=== PATIENT | male | born 1960 | race Caucasian/White ===

== ENCOUNTER 2017-02-13 16:52 | Emergency (ER) | payer OTHER ==
[~2017-02-13] VITALS: Wt 81.8 kg
[2017-02-13] MEDS ORDERED: HYDROCODONE/APAP (5/325) TAB PO STA (17:22)
[2017-02-13] MEDS ORDERED: LIDOCAINE 2%/EPI MPF (SDV) 20 ML VIAL INJ STA (17:22)
[2017-02-13] MEDS ORDERED: DIPHTH/TET/ACEL PERTUSS (ADULT) 0.5 ML VIAL IM ONE (17:30)
--- NOTE | 2017-02-13 18:35 | ERA ---
ER Documentation Chief Complaint Date/Time DATE: 02/13/17 TIME: 18:27 Chief Complaint lac to r. palm, wrist area HPI This [place]ander-speaking, left-handed male patient presents to emergency department today for right wrist laceration. Patient reports that he accidentally's cut his wrist approximately 30 minutes ago while slicing watermelon at home. Patient denies any alteration in sensation, has full range of motion and strength in hand. Laceration is actively bleeding at this time, non-pulsating, bright red blood. ROS All systems reviewed and are negative except as per history of present illness. Allergies Allergies: Coded Allergies: No Known Allergy (Unverified , 02/13/17) PMhx/Soc Medical and Surgical Hx: pt denies Medical Hx, pt denies Surgical Hx History of Surgery: No Anesthesia Reaction: No Hx Neurological Disorder: No Hx Respiratory Disorders: No Hx Cardiac Disorders: No Hx Psychiatric Problems: No Hx Miscellaneous Medical Probl: No Hx Alcohol Use: No Hx Substance Use: No Hx Tobacco Use: No Smoking Status: Never smoker Physical Exam Vitals Vital Signs Date Time Temp Pulse Resp B/P Pulse Ox O2 Delivery O2 Flow Rate FiO2 02/13/17 16:54 98.0 114 20 167/99 99 Vitals stable, triage notes reviewed Physical Exam Const: Well-hydrated, well-nourished, well-appearing in no acute distress Head: Atraumatic Eyes: Normal Conjunctiva ENT: Normal External Ears, Nose and Mouth. Neck: Full range of motion..~ No meningismus. Resp: Clear to auscultation bilaterally Cardio: Regular rate and rhythm, no murmurs Abd: Soft, non tender, non distended. Normal bowel sounds Skin: No petechiae or rashes Back: No midline or flank tenderness Ext: No cyanosis, or edema Neur: Awake and alert Psych: Normal Mood and Affect Results 24 hrs Current Medications Medications (Trade) Dose Ordered Sig/Clayton Route PRN Reason Start Time Stop Time Status Last Admin Dose Admin Diphtheria/ Tetanus/Acell Pertussis (Adacel) 0.5 ml ONCE ONCE IM 02/13/17 17:30 02/13/17 17:31 DC 02/13/17 17:51 Lidocaine/ Epinephrine (Xylocaine 2%/ Epi Mpf(Sdv)) 20 ml ONCE STAT INJ 02/13/17 17:22 02/13/17 17:30 DC Acetaminophen/ Hydrocodone Bitart ([place] (5/325)) 1 tab ONCE STAT PO 02/13/17 17:22 02/13/17 17:30 DC 02/13/17 17:50 Procedures/MDM PROCEDURE: Right upper extremity duplex arterial ultrasound CLINICAL INDICATION: Laceration in the right radial artery area. TECHNIQUE: A limited right upper extremity duplex arterial ultrasound was performed with harris scale and Doppler imaging. COMPARISON: None available FINDINGS: The right radial artery is patent. No pseudoaneurysm is identified. IMPRESSION: 1. Patent right radial artery. 2. No pseudoaneurysm or hematoma. RPTAT: HTAR .Shaan Conway MD, MD Date Time Electronically viewed and signed by .Shaan Conway MD, MD on 02/13/2017 19:27 Laceration Repair by me: Anesthesia: 2% lidocaine with epi infused locally Location: Right wrist Tendon/Joint/Nerves: No injury Foreign body: None detected after copious irrigation and exploration Technique: 7 Simple Interrupted Sutures, 4.0 Prolene Complexity: No subcutaneous sutures/mucosal repair/edge excision Post Closure Length: 2.3 cm Patient's bleeding was controlled with manual pressure, suturing, and Surgicel there is no indication of anemia. A vascular study of of radial artery is done to exclude radial artery laceration. Radial artery patent, no pseudoaneurysm. No evidence of compartment syndrome, neurologic injury, vascular injury, open joint, tendon laceration, or foreign body. Patient placed in a wrist brace to prevent flexion and hyperextension of wrist. 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 Patient given Motrin 400 mg 1 tab p.o. every 6 hours as needed. Patient will not be placed on antibiotics today. Return to emergency department if bleeding restarts, swelling, change in sensation to fingers, dizziness. I feel the patient is stable for discharge at this time. I have discussed results, examination findings, the treatment plan with the patient and family present prior to discharge. Indications for emergent reevaluation, side effects of medication were also discussed. All questions were answered. Patient verbalizes understanding and agrees with plan of care. Departure Diagnosis: Primary Impression: Laceration Condition: Good Patient Instructions: Laceration, All Additional Instructions: Thank you for for coming to [facility] for your care today. Please ask your nurse or provider if you have questions about your care today and do not leave until all your questions have been answered. Please use any medications given as directed and follow-up with your doctor (or the doctor you were referred to) in the next 2-3 days. If you do not have a primary care doctor you may follow up at the [facility] (listed below). You may also use motrin and tylenol as needed for fever and/or pain unless instructed otherwise by your provider or nurse. Indications for more urgent follow-up have been discussed, but you may return to the Emergency Department at ANY time for any worrisome or worsening symptoms. If you have abdominal pain, please know that no test or exam you received is perfect and you should follow up within 8 hours for continued pain. If you had any imaging studies today, such as an X-Ray or CT Scan, these studies will be reviewed later by a radiologist. You will be called if there are important findings that were not identified today, so make sure the contact information you provided at registration is correct. If you received any narcotic pain control medicine today, such as Vicodin, Morphine or Dilaudid, your coordination and judgment may be affected for a number of hours. Please do not drive or operate heavy machinery, and you may want someone to assist you at home. If you were given a prescription for narcotic medication, be aware that it is very addictive- use sparingly and only if necessary. KYM FLANNERY Feb 13, 2017 18:34
--- NOTE | 2017-02-13 19:27 | RADRPT ---
PROCEDURE: Right upper extremity duplex arterial ultrasound CLINICAL INDICATION: Laceration in the right radial artery area. TECHNIQUE: A limited right upper extremity duplex arterial ultrasound was performed with harris scal e and Doppler imaging. COMPARISON: None available FINDINGS: The right radial artery is patent. No pseudoaneurysm is identified. IMPRESSION: 1. Patent right radial artery. 2. No pseudoaneurysm or hematoma. RPTAT: HTAR .Shaan Conway MD, MD Date Time Electronically viewed and signed by .Shaan Conway MD, on 02/13/2017 19:27 .R/
[2017-02-13] MEDS ORDERED: IBUP400T22 PO (20:14)
[2017-02-13 21:07] VITALS: BP 157/89; PULSE 78; RESP 20; TEMP 98.2
== END 2017-02-13 21:08 | disposition home or self-care (01) ==
LOC: FTE 16:52
DX: S61.511A Laceration without foreign body of right wrist, initial encounter (principal); X58.XXXA Exposure to other specified factors, initial encounter; Y92.9 Unspecified place or not applicable; Z23 Encounter for immunization
CPT/HCPCS: 12001; 90715; 93976; Z7610; 90471

== ENCOUNTER 2017-02-16 10:34 | Emergency (ER) | payer OTHER ==
[~2017-02-16] VITALS: Ht 162.6 cm; Wt 86.0 kg
[~2017-02-16 10:34] MED LIST: IBUP400T22 PO
[2017-02-16 10:41] VITALS: Ht 162.6 cm; Wt 86.0 kg
--- NOTE | 2017-02-16 11:19 | ERD ---
ER Documentation Chief Complaint Date/Time DATE: 02/16/17 TIME: 11:15 Chief Complaint HPI This 56-year-old male who presents to the emergency department today for a wound check of a laceration that he sustained on his right hand a couple of days ago while cutting open a watermelon. States he is taking ibuprofen for pain. Denies any fevers or chills. ROS All systems reviewed and are negative except as per history of present illness. Medications Home Meds Active Scripts Ibuprofen* (Motrin*) 400 Mg Tab, 400 MG PO Q6, #30 TAB Prov:KYM FLANNERY 02/13/17 Allergies Allergies: Coded Allergies: No Known Allergy (Unverified , 02/16/17) PMhx/Soc History of Surgery: No Anesthesia Reaction: No Hx Neurological Disorder: No Hx Respiratory Disorders: No Hx Cardiac Disorders: No Hx Psychiatric Problems: No Hx Miscellaneous Medical Probl: No Hx Alcohol Use: No Hx Substance Use: No Hx Tobacco Use: No Smoking Status: Never smoker Physical Exam Vitals Vital Signs Date Time Temp Pulse Resp B/P Pulse Ox O2 Delivery O2 Flow Rate FiO2 02/16/17 10:41 98.3 99 18 125/85 97 Physical Exam Const: No acute distress Head: Atraumatic Eyes: Normal Conjunctiva ENT: Normal External Ears, Nose and Mouth. Neck: Full range of motion..~ No meningismus. Resp: Clear to auscultation bilaterally Cardio: Regular rate and rhythm, no murmurs Skin: Right wrist with evidence of sutures placed that appears to be healing well. No erythema or warmth. No purulent drainage. MSk: Right wrist with evidence of sutures placed that appears to be well healing. No erythema or warmth. No purulent drainage. Full active range of motion of thumb. Pulses 2+. Good cap refill. Neur: Awake and alert Psych: Normal Mood and Affect Procedures/MDM This 56-year-old male who presents the emergency department today for wound check of sutures that he had placed a couple of days ago. On physical exam patient has evidence of sutures placed. There is no erythema or warmth. No purulent drainage. Wound appears to be approximating well. Low suspicion for cellulitis, sepsis or deep space infection. Patient is afebrile and otherwise well-appearing. He has full active range of motion of his thumb. Low suspicion for arterial tendon involvement. Patient did have a Doppler done that showed good arterial flow. He was also updated on his tetanus shot at that time. Patient may return in 5-7 days for suture removal. The wound was redressed here in the emergency department. I do not feel that he needs to wear a wrist splint at this time. At this time the patient is stable for discharge and outpatient management. Patient should follow up with their PCP in the next 1-2 days. They may return to the emergency department sooner for any persistent or worsening of symptoms. Patient understood and agreed with the plan. Departure Diagnosis: Primary Impression: Encounter for wound re-check Condition: Fair Patient Instructions: Wound Check, Lac F/U (No Infection) Referrals: ANDRES WILLS (PCP) Additional Instructions: Llame al doctor CLARISA y ifeanyi eulalia RISHI PARA DENTRO DE 1-2 FRAZIER.Dgale a la secretaria que nosotros le instruimos hacer esta rishi.Avise o llame si tom condicin se empeora antes de la rishi. Regresa aqui si peor o no mejor. Suture removal in 5-7 days Keep wound clean and dry ESTEFANIA HARO PA-C Feb 16, 2017 11:19
== END 2017-02-16 11:34 | disposition home or self-care (01) ==
LOC: FTE 10:34
DX: Z48.01 Encounter for change or removal of surgical wound dressing (principal)
CPT/HCPCS: 99281

== ENCOUNTER 2017-06-20 09:57 | Emergency (ER) | payer OTHER ==
[~2017-06-20] VITALS: Wt 82.6 kg
--- NOTE | 2017-06-20 11:42 | RADRPT ---
PROCEDURE: XR chest CLINICAL INDICATION: Positive PPD TECHNIQUE: PA and lateral radiographs COMPARISON: None available FINDINGS: The cardiac silhouette, mediastinum, and pulmonary rosi are unremarkable. Pulmonary vasculature is within normal limits. The visualized pleural surfaces are unremarkable. Probable volume average artifact with the end of left rib # 6 and not a pleural or parenchymal abnormality in the left lower lung zone. The lung pare nchyma is otherwise unremarkable. Spondylosis of the visualized spine. Thoracic spine minimal levoscoliosis. IMPRESSION: 1. No radiographic evidence of active tuberculosis 2. Left lower lung zone probable artifact and not a pleural or parenchymal abnormality. Compare to prior chest imaging studies. RPTAT: TT Physician Dorothy Date Time Electronically viewed and signed by Physician Dorothy on 06/20/2017 11:42 JS/
--- NOTE | 2017-06-20 11:47 | ERD ---
ER Documentation Chief Complaint Chief Complaint PT HERE FOR X-RAY, NEEDS CLEARANCE FOR JOB HPI This 56-year-old male presents emergency department today for an x-ray. Patient states that he is trying to obtain appointment and went to a urgent care clinic and had a TB test done that they were unsure if it was positive and was told to come to the ER. Denies any fevers, chills, cough, night sweats. ROS All systems reviewed and are negative except as per history of present illness. Medications Home Meds Active Scripts Ibuprofen* (Motrin*) 400 Mg Tab, 400 MG PO Q6, #30 TAB Prov:ALMA DELIA,KYM 02/13/17 Allergies Allergies: Coded Allergies: No Known Allergy (Unverified , 02/16/17) PMhx/Soc History of Surgery: No Anesthesia Reaction: No Hx Neurological Disorder: No Hx Respiratory Disorders: No Hx Cardiac Disorders: No Hx Psychiatric Problems: No Hx Miscellaneous Medical Probl: No Hx Alcohol Use: No Hx Substance Use: No Hx Tobacco Use: No Physical Exam Vitals Vital Signs Date Time Temp Pulse Resp B/P Pulse Ox O2 Delivery O2 Flow Rate FiO2 06/20/17 10:02 98.7 87 17 145/86 97 Physical Exam Const: NAD Head: Atraumatic Eyes: Normal Conjunctiva ENT: Normal External Ears, Nose and Mouth. Neck: Full range of motion..~ No meningismus. Resp: Clear to auscultation bilaterally Cardio: Regular rate and rhythm, no murmurs Abd: Soft, non tender, non distended. Normal bowel sounds Skin: Left forearm volar aspect with evidence of localized irregular erythema and induration where patient had PPD test Back: No midline or flank tenderness Ext: No cyanosis, or edema Neur: Awake and alert Psych: Normal Mood and Affect Results 24 hrs DIAGNOSTIC IMAGING REPORT Patient: SUMMER TSAI : 1960 Age: 56 Sex: M MR #: [id number] DOS: 06/20/17 0000 Ordering MD: ESTEFANIA HARO PA-C Location: [facility] Room/Bed: PROCEDURE: XR chest CLINICAL INDICATION: Positive PPD TECHNIQUE: PA and lateral radiographs COMPARISON: None available FINDINGS: The cardiac silhouette, mediastinum, and pulmonary rosi are unremarkable. Pulmonary vasculature is within normal limits. The visualized pleural surfaces are unremarkable. Probable volume average artifact with the end of left rib # 6 and not a pleural or parenchymal abnormality in the left lower lung zone. The lung parenchyma is otherwise unremarkable. Spondylosis of the visualized spine. Thoracic spine minimal levoscoliosis. IMPRESSION: 1. No radiographic evidence of active tuberculosis 2. Left lower lung zone probable artifact and not a pleural or parenchymal abnormality. Compare to prior chest imaging studies. RPTAT: TT Physician Dorothy Date Time Electronically viewed and signed by Halley Hernandez Physician on 2016 11:42 JS/ CC: ESTEFANIA HARO PA-C Procedures/MDM This is a 56-year-old male who presents the emergency department today for imaging after being told he may have a positive TB test on his PPD. Denies any symptoms and his vital signs are stable. I did obtain a chest x-ray Chest x-ray shows no radiographic evidence of active tuberculosis. There are left lower lung zone probable artifact and not a pleural paramedical abnormality. Low suspicion for pneumonia, PE, abscess, pleural effusion, pneumothorax Patient did appear to have a localized reaction on his left forearm from the PPD and appears to have been exposed to tuberculosis at some point. I did ask patient if he had had the BCG vaccine in the past in his [place] country indicated that yes he did approximately 10 years ago. I explained to the patient this could be causing the reaction or that he may have possibly been exposed to TB at some point. There is no indication for active TB. Low suspicion for sepsis, SJS, meningitis, cellulitis, deep space tracking infection. I did offer to give the patient rifampin daily but explained the risks and benefits such as liver failure and the need for repeat laboratory workup every month and patient declined a prescription for TB medication and indicated that he would follow-up with his primary care doctor and get the prescription from them if necessary. Discussed the patient with Dr. Daniels and he is in agreement with the plan Departure Diagnosis: Primary Impression: Encounter for laboratory test Condition: Fair ESTEFANIA HARO PA-C Jun 20, 2017 11:47
== END 2017-06-20 12:39 | disposition home or self-care (01) ==
LOC: FTE 09:57
DX: Z00.00 Encounter for general adult medical examination without abnormal findings (principal)
CPT/HCPCS: 71020; Z7502

== ENCOUNTER 2017-08-13 20:05 | Emergency (ER) | END 2017-08-14 04:55 | disposition home or self-care (01) ==